=== PATIENT | female | born 1950 ===

== ENCOUNTER 2017-08-22 19:48 | Emergency (ER) | payer OTHER, MEDICARE ==
[2017-08-22 19:58] VITALS: BP 148/78; PULSE 72; RESP 16; TEMP 97.5; O2SAT 99
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
== END 2017-08-22 22:23 | disposition home or self-care (01) ==
LOC: H.ER 19:48
DX: S79.912A Unspecified injury of left hip, initial encounter (principal); V03.10XA Pedestrian on foot injured in collision with car, pick-up truck or van in traffic accident, initial encounter; Y92.410 Unspecified street and highway as the place of occurrence of the external cause; E03.9 Hypothyroidism, unspecified; E11.9 Type 2 diabetes mellitus without complications